=== PATIENT | female | born 1980 | race American Indian/Alaskan Native ===

== ENCOUNTER 2018-08-29 19:00 | Emergency (ER) | payer SELFPAY ==
--- NOTE | 2018-08-29 19:42 | Emergency Department Report ---
HPI - General Chief Complaint: Psych Time Seen by Provider: 08/29/18 19:19 - HPI HPI: 38-year-old female presents to the emergency department from home with a complaint of depression and suicidal ideations. She has a history of manic depression and bipolar disorder. She says it has been about 3 months since she was last on her bupropion 300 mg each day and she has been out of it secondary to a lack of insurance. She denies any particular plan as to how she would harm herself. She denies any hallucinations, homicidal ideations. She denies any past medical history. ED Past Medical Hx - Surgical History Additional Surgical History: L ovary removed when 18mo - Social History Smoking Status: Current Every Day Smoker Substance Use Type: None - Medications Home Medications: Home Medications Medication Instructions Recorded Confirmed Last Taken Type metroNIDAZOLE [Flagyl] 500 mg PO BID #20 tablet 09/11/13 Unknown Rx ED Review of Systems ROS: Stated complaint: EXTREME DEPRESSION/SUICIDAL Other details as noted in HPI Comment: All other systems reviewed and negative Constitutional: denies: chills, fever Eyes: denies: eye pain, vision change ENT: denies: ear pain, throat pain Respiratory: denies: cough, shortness of breath Cardiovascular: denies: chest pain, palpitations Gastrointestinal: denies: abdominal pain, vomiting Genitourinary: denies: dysuria, discharge Musculoskeletal: denies: back pain, arthralgia Skin: denies: rash, lesions Neurological: denies: headache, weakness Psychiatric: depression, suicidal thoughts Physical Exam - Physical Exam Physical Exam: GENERAL: The patient is well-developed well-nourished. HEENT: Normocephalic. Atraumatic. Patient has moist mucous membranes. EYES: Extraocular motions are intact. NECK: Supple. Trachea is midline. CHEST/LUNGS: Clear to auscultation. There is no respiratory distress noted. HEART/CARDIOVASCULAR: Regular. There is no tachycardia. There is no obvious murmur. ABDOMEN: Abdomen is soft, nontender. Patient has normal bowel sounds. There is no abdominal distention. SKIN: Skin is warm and dry. NEURO: The patient is awake, alert, and oriented. The patient is cooperative. The patient has no focal neurologic deficits. The patient has normal speech. MUSCULOSKELETAL: There is no tenderness or deformity. There is no evidence of acute injury. PSYCH: Patient has a flat affect. ED Medical Decision Making - Lab Data Result diagrams: 08/29/18 19:48 08/29/18 19:48 - Medical Decision Making Patient presents to the emergency department with a complaint of depression and suicidal ideations. She has not been on her bupropion for the past few months. She has a flat affect but otherwise is calm and appropriate. However secondary to her suicidal ideation she has been admitted 1013. Labs are mostly unremarkable. Vital signs stable throughout her ED course. The patient is medically cleared for psychiatric placement. - Differential Diagnosis depression, bipolar disorder, schizoaffective, substance abuse Critical Care Time: No Critical care attestation.: If time is entered above; I have spent that time in minutes in the direct care of this critically ill patient, excluding procedure time. ED Disposition Clinical Impression: Suicidal ideations Depression Qualifiers: Depression Type: unspecified Qualified Code(s): F32.9 - Major depressive disorder, single episode, unspecified Disposition: DC/TX-65 PSY HOSP/PSY UNIT Is pt being admited?: No Condition: Stable Time of Disposition: 23:51
[2018-08-29 20:22] LABS: Basophils # (Auto) 0.1 K/mm3 (0.0-0.1); Basophils % (Auto) 1.3 % (0.0-1.8); Eosinophils # (Auto) 0.2 K/mm3 (0.0-0.4); Eosinophils % (Auto) 2.3 % (0.0-4.3); Hematocrit 38.6 % (30.3-42.9); Hemoglobin 13.3 gm/dl (10.1-14.3); Lymphocytes # (Auto) 3.8 K/mm3 (1.2-5.4); Lymphocytes % (Auto) 46.3 % (13.4-35.0); Mean Corpuscular HGB Conc 35 % (30-34); Mean Corpuscular Volume 89 fl (79-97); Monocytes # (Auto) 0.3 K/mm3 (0.0-0.8); Monocytes % (Auto) 3.8 % (0.0-7.3); Platelet Count 296 K/mm3 (140-440); Red Blood Count 4.34 M/mm3 (3.65-5.03); Red Cell Distribution Width 13.5 % (13.2-15.2)
[2018-08-29 21:02] LABS: BUN/Creatinine Ratio 10; Blood Urea Nitrogen 7 mg/dL (7-17); Calcium 9.8 mg/dL (8.4-10.2); Hemolysis Index 14
[2018-08-29 23:11] LABS: Bilirubin,Urine NEG (Negative); Blood,Urine NEG (Negative); Color,Urine Yellow (Yellow); Protein,Urine <15 mg/dL mg/dL (Negative); RBC,Urine < 1.0 /HPF (0.0-6.0); Urobilinogen,Urine < 2.0 mg/dL (<2.0); WBC,Urine < 1.0 /HPF (0.0-6.0)
[2018-08-29 23:24] LABS: Amphetamine Screen,Urine PRESUMPTIVE NEGATIVE; Benzodiazepines Screen,Urine PRESUMPTIVE NEGATIVE; Cocaine Screen,Urine PRESUMPTIVE NEGATIVE; Methadone Screen,Urine PRESUMPTIVE NEGATIVE; Opiate Screen,Urine PRESUMPTIVE NEGATIVE
[2018-08-29 23:42] LABS: Cannabinoid Screen,Urine PRESUMPTIVE POSITIVE
[2018-08-30] MEDS ORDERED: WELLBUTRIN XL PO SCH (10:00)
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
[2018-08-31] MEDS ORDERED: ZOLOFT PO ONE (16:45)
[2018-08-31 18:07] VITALS: BP 121/83
[2018-09-01] MEDS ORDERED: ZOLOFT PO SCH (10:00)
== END 2018-08-31 19:06 | disposition home or self-care (01) ==
LOC: EEVIPCON 19:00 → ED 19:00
DX: F32.9 Major depressive disorder, single episode, unspecified (principal); F17.200 Nicotine dependence, unspecified, uncomplicated; F12.10 Cannabis abuse, uncomplicated
CPT/HCPCS: 36415; 80048; 80307; 81001; 84703; 85025; 99284; G0480; 80320

== ENCOUNTER 2020-02-11 11:35 | Emergency (ER) | payer MEDICAID ==
[2020-02-11] MEDS ORDERED: oxyCODONE /ACETAMINOPHEN 5-325MG TAB PO ONE (12:30)
[2020-02-11] MEDS ORDERED: dexAMETHasone 20 MG/5 ML VIAL IV ONE (12:31)
[2020-02-11 12:32] VITALS: BP 136/87
--- NOTE | 2020-02-11 12:32 | Emergency Department Report ---
ED General Adult HPI - General Chief complaint: Allergic Reaction Stated complaint: ALLEG REACTION Time Seen by Provider: 02/11/20 12:15 Source: patient Mode of arrival: Ambulatory Limitations: No Limitations - History of Present Illness Initial comments: 39-year-old -[place] female patient presents with complaints of right- sided facial swelling x yesterday. Patient states she developed dental pain 2 days ago and was seen by dental specialist. Patient states she was informed she needed to have her teeth pulled in the right upper portion of her mouth and was placed on clindamycin for infection. She states the next day she began to have facial swelling that worsened today. She also reports an increase in pain and rates her pain is 8/10 in severity. Patient states she believes she is allergic to the clindamycin and denies having had it in the past. She denies any trouble swallowing, cough, shortness of breath, fevers/chills/sweats, or difficulty opening her jaw. - Related Data Home Medications Medication Instructions Recorded Confirmed Last Taken Bupropion HCl [Wellbutrin Xl] 300 mg PO DAILY 08/30/18 08/30/18 Unknown Previous Rx's Medication Instructions Recorded Last Taken Type Sertraline [Zoloft] 50 mg PO DAILY #20 tablet 08/31/18 Unknown Rx Acetaminophen/Codeine [Tylenol 1 tab PO Q6H PRN #8 tab 02/11/20 Unknown Rx /Codeine # 3 tab] Ketorolac [Toradol] 10 mg PO Q6H PRN #12 tablet 02/11/20 Unknown Rx levoFLOXacin [Levaquin] 750 mg PO QDAY 6 Days #6 tablet 02/11/20 Unknown Rx metroNIDAZOLE [Flagyl TAB] 500 mg PO Q8HR 7 Days #21 tab 02/11/20 Unknown Rx Allergies Allergy/AdvReac Type Severity Reaction Status Date / Time codeine Allergy Vomiting Verified 08/29/18 19:52 ED Review of Systems ROS: Stated complaint: ALLEG REACTION Other details as noted in HPI Constitutional: denies: chills, diaphoresis, fever, malaise, weakness ENT: dental pain. denies: throat pain Respiratory: denies: cough Cardiovascular: denies: chest pain Gastrointestinal: denies: nausea, vomiting Musculoskeletal: denies: joint swelling Skin: denies: change in color Neurological: denies: numbness, paresthesias Hematological/Lymphatic: denies: swollen glands ED Past Medical Hx - Past Medical History Previous Medical History?: No - Surgical History Past Surgical History?: Yes Additional Surgical History: L ovary removed when 18mo - Social History Smoking Status: Current Every Day Smoker Substance Use Type: Alcohol, Marijuana - Medications Home Medications: Home Medications Medication Instructions Recorded Confirmed Last Taken Type Bupropion HCl [Wellbutrin Xl] 300 mg PO DAILY 08/30/18 08/30/18 Unknown History Sertraline [Zoloft] 50 mg PO DAILY #20 tablet 08/31/18 Unknown Rx Acetaminophen/Codeine [Tylenol 1 tab PO Q6H PRN #8 tab 02/11/20 Unknown Rx /Codeine # 3 tab] Ketorolac [Toradol] 10 mg PO Q6H PRN #12 tablet 02/11/20 Unknown Rx levoFLOXacin [Levaquin] 750 mg PO QDAY 6 Days #6 tablet 02/11/20 Unknown Rx metroNIDAZOLE [Flagyl TAB] 500 mg PO Q8HR 7 Days #21 tab 02/11/20 Unknown Rx ED Physical Exam - General Limitations: No Limitations General appearance: alert, in no apparent distress - Head Head exam: Present: atraumatic, normocephalic, other (Moderate right-sided facial swelling noted without erythema; there is tenderness to palpation of the right side of the face overlying the right upper molars) - Eye Eye exam: Present: normal appearance. Absent: scleral icterus - Expanded ENT Exam Expanded Mouth exam: Present: tongue normal. Absent: drooling, trismus, muffled voice Teeth exam: Present: dental caries 1 - Dental Tenderness (Mild erythema and swelling of the gums noted without visible abscess) ED Course Vital Signs 02/11/20 11:38 Temperature 98.1 F Pulse Rate 82 Respiratory 18 Rate Blood Pressure 136/87 O2 Sat by Pulse 99 Oximetry ED Medical Decision Making - Lab Data Result diagrams: 02/11/20 12:44 02/11/20 12:44 Lab Results 02/11/20 02/11/20 Range/Units 12:44 12:44 WBC 10.0 (4.5-11.0) K/mm3 RBC 4.00 (3.65-5.03) M/mm3 Hgb 11.9 (10.1-14.3) gm/dl Hct 36.3 (30.3-42.9) % MCV 91 (79-97) fl MCH 30 (28-32) pg MCHC 33 (30-34) % RDW 13.8 (13.2-15.2) % Plt Count 270 (140-440) K/mm3 Lymph % (Auto) 29.8 (13.4-35.0) % Coal % (Auto) 7.5 H (0.0-7.3) % Eos % (Auto) 2.0 (0.0-4.3) % Baso % (Auto) 0.6 (0.0-1.8) % Lymph # 3.0 (1.2-5.4) K/mm3 Coal # 0.7 (0.0-0.8) K/mm3 Eos # 0.2 (0.0-0.4) K/mm3 Baso # 0.1 (0.0-0.1) K/mm3 Seg Neutrophils % 60.1 (40.0-70.0) % Seg Neutrophils # 6.0 (1.8-7.7) K/mm3 Sodium 138 (137-145) mmol/L Potassium 4.5 (3.6-5.0) mmol/L Chloride 101.7 (98-107) mmol/L Carbon Dioxide 22 (22-30) mmol/L Anion Gap 19 mmol/L BUN 8 (7-17) mg/dL Creatinine 0.8 (0.6-1.2) mg/dL Estimated GFR > 60 ml/min BUN/Creatinine Ratio 10 % Glucose 115 H (65-100) mg/dL Calcium 9.6 (8.4-10.2) mg/dL - Radiology Data Radiology results: report reviewed CT MAXILLOFACIAL WITH CONTRAST INDICATION / CLINICAL INFORMATION: MAIN. TECHNIQUE: Axial CT imaging of the maxillofacial structures after the administration of 100 cc Omnipaque 300. Multiplanar reformats generated. All CT scans at this location are performed using CT dose reduction for ALARA by means of automated exposure control. COMPARISON: None available. FINDINGS: FACIAL BONES: No fracture. Minimal anterior subluxation of the left temporomandibular joint. 1 cm sclerotic left mandibular focus with benign features possibly representing idiopathic osteoscler osis. PARANASAL SINUSES: Moderate-severe mucosal membrane relatively sparing the sphenoid sinuses, and worst in the right maxillary antrum with lobular densities possibly representing mucous retention cysts. ORBITS: No significant abnormality. SOFT TISSUES: Moderate induration along the subcutaneous soft tissue structures extending along the right maxillary and mandibular face, most prominent in the maxillary region. No focal fluid collection to suggest abscess. Bilateral premolar and left molar teeth are missing. VISUALIZED INTRACRANIAL STRUCTURES: No significant abnormality. ADDITIONAL FINDINGS: None. IMPRESSION: 1. Moderate diffuse right-sided soft tissue facial swelling most prominent adjacent to an absent right maxillary premolar tooth. No odontogenic or periodontal abscess. - Medical Decision Making 39-year-old -[place] female patient presents with complaints of right- sided facial swelling x yesterday. Patient states she developed dental pain 2 days ago and was seen by dental specialist. Patient states she was informed she needed to have her teeth pulled in the right upper portion of her mouth and was placed on clindamycin for infection. She states the next day she began to have facial swelling that worsened today. She also reports an increase in pain and rates her pain is 8/10 in severity. Patient states she believes she is allergic to the clindamycin and denies having had it in the past. She denies any trouble swallowing, cough, shortness of breath, fevers/chills/sweats, or difficulty opening her jaw. No trismus or drooling noted on exam, however there was significant facial swelling extending towards the right eye noted. EOMs are intact and nonpainful. CT facial performed and shows the following: Moderate diffuse right-sided soft tissue facial swelling most prominent adjacent to an absent right maxillary premolar tooth. No odontogenic or periodontal abscess. Given patient's failure on clindamycin and significant swelling of face on exam, a dose of Levaquin was given IV and patient is to discharge home on Levaquin and Flagyl. CBC shows normal white count. Recommend follow-up with her dental specialist tomorrow. Her vitals are normal, she is well-appearing, and she is stable for discharge home. Strict return precautions were discussed in detail with patient who verbalized understanding. Critical care attestation.: If time is entered above; I have spent that time in minutes in the direct care of this critically ill patient, excluding procedure time. ED Disposition Clinical Impression: Dental infection Disposition: DC-01 TO HOME OR SELFCARE Is pt being admited?: No Condition: Stable Instructions: Dental Caries (ED), Dental Abscess (ED) Additional Instructions: Please follow-up with your dentist first thing tomorrow morning 02/12/2020. Prescriptions: metroNIDAZOLE [Flagyl TAB] 500 mg PO Q8HR 7 Days #21 tab levoFLOXacin [Levaquin] 750 mg PO QDAY 6 Days #6 tablet Ketorolac [Toradol] 10 mg PO Q6H PRN #12 tablet PRN Reason: Pain Acetaminophen/Codeine [Tylenol /Codeine # 3 tab] 1 tab PO Q6H PRN #8 tab PRN Reason: Pain , Severe (7-10) Referrals: PRIMARY CARE,MD [Primary Care Provider] - 3-5 Days
[2020-02-11 13:00] LABS: Basophils # (Auto) 0.1 K/mm3 (0.0-0.1); Basophils % (Auto) 0.6 % (0.0-1.8); Eosinophils # (Auto) 0.2 K/mm3 (0.0-0.4); Hematocrit 36.3 % (30.3-42.9); Hemoglobin 11.9 gm/dl (10.1-14.3); Lymphocytes % (Auto) 29.8 % (13.4-35.0); Mean Corpuscular HGB Conc 33 % (30-34); Mean Corpuscular Volume 91 fl (79-97); Monocytes # (Auto) 0.7 K/mm3 (0.0-0.8); Monocytes % (Auto) 7.5 % (0.0-7.3); Platelet Count 270 K/mm3 (140-440); Red Cell Distribution Width 13.8 % (13.2-15.2)
[2020-02-11 13:06] LABS: BUN/Creatinine Ratio 10; Blood Urea Nitrogen 8 mg/dL (7-17); Calcium 9.6 mg/dL (8.4-10.2); Hemolysis Index 74
--- NOTE | 2020-02-11 14:08 | Cat Scan Report ---
CT MAXILLOFACIAL WITH CONTRAST INDICATION / CLINICAL INFORMATION: MAIN. TECHNIQUE: Axial CT imaging of the maxillofacial structures after the administration of 100 cc Omnipaque 300. Mu ltiplanar reformats generated. All CT scans at this location are performed using CT dose reduction fo r ALARA by means of automated exposure control. COMPARISON: None available. FINDINGS: FACIAL BONES: No fracture. Minimal anterior subluxation of the left temporomandibular joint. 1 cm scl erotic left mandibular focus with benign features possibly representing idiopathic osteosclerosis. PARANASAL SINUSES: Moderate-severe mucosal membrane relatively sparing the sphenoid sinuses, and wors t in the right maxillary antrum with lobular densities possibly representing mucous retention cysts. ORBITS: No significant abnormality. SOFT TISSUES: Moderate induration along the subcutaneous soft tissue structures extending along the r ight maxillary and mandibular face, most prominent in the maxillary region. No focal fluid collection to suggest abscess. Bilateral premolar and left molar teeth are missing. VISUALIZED INTRACRANIAL STRUCTURES: No significant abnormality. ADDITIONAL FINDINGS: None. IMPRESSION: 1. Moderate diffuse right-sided soft tissue facial swelling most prominent adjacent to an absent righ t maxillary premolar tooth. No odontogenic or periodontal abscess. Signer Name: Phan Meza MD Signed: 02/11/2020 2:03 PM Workstation Name: [id number]
[2020-02-11] MEDS ORDERED: cefTRIAXone/NS 1 GM/50 ML 1 GM/50 ML BAG IV ONE (14:22)
== END 2020-02-11 15:55 | disposition home or self-care (01) ==
LOC: ED 11:35
DX: K04.7 Periapical abscess without sinus (principal); F17.200 Nicotine dependence, unspecified, uncomplicated; F12.90 Cannabis use, unspecified, uncomplicated; Z88.6 Allergy status to analgesic agent; Z79.899 Other long term (current) drug therapy; Z98.890 Other specified postprocedural states
CPT/HCPCS: 36415; 70487; 80048; 85025; 96365; 96366; 96375; 99284; J1100; J1956; Q9967